=== PATIENT | male | born 1995 | race African-American/Black ===

== ENCOUNTER 2022-07-15 10:06 | Emergency (ER) | payer SELFPAY | END 2022-07-15 11:11 | disposition home or self-care (01) | LOC: ERS 10:06 | DX: H60.91 Unspecified otitis externa, right ear (principal) | CPT/HCPCS: 99282 ==

== ENCOUNTER 2022-12-16 01:07 | Emergency (ER) | payer OTHER, SELFPAY ==
[2022-12-16 02:29] LABS: #Eosinphils 0.2 thou/uL (0.0-0.7); #Lymphocytes 3.8 thou/uL (1.20-3.40); #Monocytes 0.6 thou/uL (0.11-0.59); %Basophils 0.5 % (0.0-1.0); %Eosinophils 2.9 % (0.0-10.0); %Lymphocytes 43.7 % (21.0-51.0); %Monocytes 6.8 % (0.0-10.0); %Neutrophils 46.1 % (42.0-75.0); Hemoglobin 13.7 g/dL (14.0-18.0); Mean Corpuscular HGB CONC 33.8 g/dL (32.0-36.0); Mean Corpuscular Hemoglobin 31.4 pg (27.0-31.0); Mean Corpuscular Volume 92.9 fl (78.0-98.0); Mean Platelet Volume 7.6 fL (7.4-10.4); Platelet Count 215 10x3/uL (130-400); RBC Distribution Width 12.8 % (11.5-14.5); Red Blood Cell (RBC) Count 4.37 mill/uL (4.70-6.10); White Blood Cell (WBC) Count 8.6 10x3/uL (4.8-10.8)
[2022-12-16 02:44] LABS: ALT (SGPT) 15 U/L (8-55); AST (SGOT) 27 U/L (5-34); Albumin 3.9 g/dL (3.5-5.0); Alkaline Phosphatase 45 U/L (40-110); Anion Gap 12 mmol/L (10-20); BUN (Urea Nitrogen) 10 mg/dL (8.9-20.6); Bilirubin, Total 0.4 mg/dL (0.2-1.2); Calc. Creatinine Clearance 0 mL/min (70-130); Calcium 9.2 mg/dL (7.8-10.44); Carbon Dioxide 25 mmol/L (22-29); Chloride 106 mmol/L (98-107); Estimated GFR 86; Globulin 2.8 g/dL (2.4-3.5); Glucose 86 mg/dL (70-105); Lipase 19 U/L (8-78); Potassium 3.4 mmol/L (3.5-5.1); Protein, Total 6.7 g/dL (6.0-8.3); Sodium 140 mmol/L (136-145)
[2022-12-16] MEDS ORDERED: Iopamidol-370 76% 500 ML 1 ML ONE (12:45)
== END 2022-12-16 04:04 | disposition home or self-care (01) ==
LOC: ERS 01:07
DX: K62.5 Hemorrhage of anus and rectum (principal)
CPT/HCPCS: 74177; 80053; 83690; 85025; Q9967

== ENCOUNTER 2023-05-23 05:28 | Inpatient (IN) | payer SELFPAY ==
[2023-05-23] MEDS ORDERED: Ondansetron ODT 4 MG TAB ONE (05:59)
[2023-05-23] MEDS ORDERED: Mag-Al 1200 mg/1200 mg/30 ML UDCUP ONE (06:02)
[2023-05-23] MEDS ORDERED: Famotidine/PF 20 mg/2ml Vial ONE (06:06)
[2023-05-23 06:14] LABS: #Eosinphils 0.2 thou/uL (0.0-0.7); #Monocytes 0.6 thou/uL (0.11-0.59); #Neutrophils 5.2 thou/uL (1.40-6.50); %Basophils 0.5 % (0.0-1.0); %Eosinophils 2.6 % (0.0-10.0); %Lymphocytes 28.5 % (21.0-51.0); %Monocytes 6.7 % (0.0-10.0); %Neutrophils 61.5 % (42.0-75.0); Hemoglobin 13.7 g/dL (14.0-18.0); Mean Corpuscular HGB CONC 33.3 g/dL (32.0-36.0); Mean Corpuscular Hemoglobin 30.5 pg (27.0-31.0); Mean Corpuscular Volume 91.5 fl (78.0-98.0); Mean Platelet Volume 9.4 fL (7.4-10.4); Platelet Count 232 10x3/uL (130-400); RBC Distribution Width 13.2 % (11.5-14.5); Red Blood Cell (RBC) Count 4.49 mill/uL (4.70-6.10); White Blood Cell (WBC) Count 8.4 10x3/uL (4.8-10.8)
[2023-05-23 06:40] LABS: ALT (SGPT) 10 U/L (8-55); AST (SGOT) 15 U/L (5-34); Alkaline Phosphatase 40 U/L (40-110); Anion Gap 11 mmol/L (10-20); BUN (Urea Nitrogen) 9 mg/dL (8.9-20.6); Bilirubin, Total 0.4 mg/dL (0.2-1.2); Calc. Creatinine Clearance 0 mL/min (70-130); Calcium 8.8 mg/dL (7.8-10.44); Carbon Dioxide 26 mmol/L (22-29); Chloride 106 mmol/L (98-107); Estimated GFR 72; Globulin 2.7 g/dL (2.4-3.5); Glucose 88 mg/dL (70-105); Lipase 11 U/L (8-78); Magnesium 1.6 mg/dL (1.6-2.6); Potassium 3.5 mmol/L (3.5-5.1); Protein, Total 6.7 g/dL (6.0-8.3); Sodium 139 mmol/L (136-145)
[2023-05-23] MEDS ORDERED: Morphine 4 MG/ML VIAL ONE (08:37)
[2023-05-23] MEDS ORDERED: Iopamidol-370 76% 500 ML MDV (1 ML CHARGE) ONE (08:43)
[2023-05-23] MEDS ORDERED: Morphine 4 MG/ML VIAL SLOW IVP PRN (10:15)
[2023-05-23 11:16] LABS: Bacteria/HPF None Seen HPF (None Seen); Bilirubin Negative (Negative); Blood, Urine Negative (Negative); Clarity Clear (Clear); Glucose, Urine (Dipstick) Normal (Negative); Ketone, Urine Negative (Negative); Leukocyte Negative Leu/uL (Negative); Nitrite Negative (Negative); Protein, Urine (Dipstick) 20 mg/dL (Neg-Trace); RBC/HPF 0-3 HPF (0-3); Squamous Epithelial None Seen HPF (0-3); Urobilinogen Normal mg/dL (Less than 2); WBC/HPF 0-3 HPF (0-3); pH, Urine 6.5 (5.0-9.0)
[2023-05-23 11:17] LABS: Specific Gravity, Urine Greater than 1.060 (1.002-1.036)
[2023-05-23] MEDS ORDERED: Piperacillin/Tazobactam 3.375 GM in Sodium Chloride 0.9% 100 ML IVPB SCH (11:45)
[2023-05-23 12:05] LABS: INR-International Normal Ratio 1.2; Prothrombin Time 15.8 sec (12.0-14.7)
[2023-05-23 12:06] LABS: PTT 44.2 sec (22.9-36.1)
[2023-05-23 12:07] LABS: D-Dimer Test 0.56 *mcg/mL (0.27-0.43)
[2023-05-23 12:41] VITALS: BMI 29.5
[2023-05-23] MEDS ORDERED: Piperacillin/Tazobactam 3.375 GM VIAL ONE (12:59)
[2023-05-23 13:05] LABS: HEX PHOS LA Tube 1 48.9 SEC; HEX PHOS LA Tube 2 45.1 SEC; Hexagonal Phospholipid Neut 3.8 SEC (0-8.0)
[2023-05-23] MEDS: Lactated Ringer's 1,000 ML IV SCH ×2 (13:06→20:28)
[2023-05-23] MEDS: Piperacillin/Tazobactam 3.375 GM in Sodium Chloride 0.9% 100 ML IVPB SCH ×2 (16:47→23:54)
[2023-05-24] MEDS: Lactated Ringer's 1,000 ML IV SCH ×2 (05:59→16:12)
[2023-05-24 06:36] LABS: #Basophils 0.1 thou/uL (0.0-0.2); #Eosinphils 0.3 thou/uL (0.0-0.7); #Monocytes 0.5 thou/uL (0.11-0.59); #Neutrophils 4.6 thou/uL (1.40-6.50); %Basophils 0.6 % (0.0-1.0); %Eosinophils 2.9 % (0.0-10.0); %Lymphocytes 38.1 % (21.0-51.0); %Monocytes 6.2 % (0.0-10.0); Hemoglobin 13.9 g/dL (14.0-18.0); Mean Corpuscular HGB CONC 34.8 g/dL (32.0-36.0); Mean Corpuscular Hemoglobin 31.1 pg (27.0-31.0); Mean Corpuscular Volume 89.5 fl (78.0-98.0); Mean Platelet Volume 9.1 fL (7.4-10.4); Platelet Count 210 10x3/uL (130-400); Red Blood Cell (RBC) Count 4.47 mill/uL (4.70-6.10); White Blood Cell (WBC) Count 8.8 10x3/uL (4.8-10.8)
[2023-05-24 06:56] LABS: Lactic Acid 0.7 mmol/L (0.5-2.2)
[2023-05-24 07:00] LABS: ALT (SGPT) 9 U/L (8-55); AST (SGOT) 13 U/L (5-34); Albumin 3.5 g/dL (3.5-5.0); Alkaline Phosphatase 35 U/L (40-110); Anion Gap 12 mmol/L (10-20); BUN (Urea Nitrogen) 8 mg/dL (8.9-20.6); Bilirubin, Total 0.6 mg/dL (0.2-1.2); Calc. Creatinine Clearance 88 mL/min (70-130); Calcium 8.8 mg/dL (7.8-10.44); Carbon Dioxide 23 mmol/L (22-29); Chloride 109 mmol/L (98-107); Estimated GFR 64; Globulin 2.5 g/dL (2.4-3.5); Glucose 81 mg/dL (70-105); Potassium 3.9 mmol/L (3.5-5.1); Sodium 140 mmol/L (136-145)
[2023-05-24] MEDS: Piperacillin/Tazobactam 3.375 GM in Sodium Chloride 0.9% 100 ML IVPB SCH (08:10)
[2023-05-24] MEDS ORDERED: Iopamidol 370 76% 100 ML VIAL ONE (09:03)
[2023-05-25] MEDS: Lactated Ringer's 1,000 ML IV SCH ×2 (03:55→08:04)
[2023-05-25 07:46] VITALS: TEMP 97.8
[2023-05-25 11:44] VITALS: BP 127/82
[2023-05-26 17:08] LABS: Cardiolipin IgA Ab 3.9 APL-U/mL (<14 Negative); Cardiolipin IgG Ab 1.3 GPL-U/mL (<10 Negative); EliA APS New Method **** NEW METHOD ****
== END 2023-05-25 16:09 | disposition home or self-care (01) | DRG 395 ==
LOC: SUATTDRO 05:28 → ERS 05:28 → T4-A 10:37 → ERHOLD 10:37 → T4-A 13:28
PROVIDERS: ADMIT Internal Medicine; ATTEND Internal Medicine
DX: K55.059 Acute (reversible) ischemia of intestine, part and extent unspecified (principal); K55.069 Acute infarction of intestine, part and extent unspecified; R63.0 Anorexia; R10.84 Generalized abdominal pain; Z68.29 Body mass index [BMI] 29.0-29.9, adult
CPT/HCPCS: 36415; 71045; 74177; 74178; 80053; 81001; 83090; 83605; 83690; 83735; 85025; 85300; 85303; 85305; 85307; 85379; 85598; 85610; 85730; 86147; 93005; 96361; 96372; 96374; 96375; J1650; J2270; J2543; J3490; J7120; Q0162; Q9967; S0028